=== PATIENT | female | born 1950 | race Caucasian/White ===

== ENCOUNTER 2023-12-28 09:15 | Emergency (ER) | payer MEDICARE, SELFPAY ==
[2023-12-28 09:16] VITALS: BP 154/87; PULSE 86; RESP 18; TEMP 36.4; O2SAT 98; BMI 28.8
--- NOTE | 2023-12-28 09:46 | RAD_ITS ---
HISTORY: pain. TECHNIQUE: XR Pelvis 1 or 2 Views. COMPARISON: None. FINDINGS: OSSEOUS STRUCTURES: No acute displaced fracture identified. Note that overlapping bowel shadows may obscure osseous detail. Mineralization unremarkable. JOINT SPACES: No dislocation. Mild degenerative change. RAD/Pelvis 1 or 2 Views IMPRESSION: No acute displaced fracture or dislocation identified. Electronically Signed: Tia Dean MD at 10:34 EDT ,
--- NOTE | 2023-12-28 09:46 | RAD_ITS ---
HISTORY: pain. TECHNIQUE: XR Spine Lumbar 2 or 3 Views. COMPARISON: None. FINDINGS: VERTEBRAE: Vertebral body heights preserved. Posterior elements appear intact. ALIGNMENT: No significant anterior or posterior subluxation. INTERVERTEBRAL DISCS: Disc spaces maintained. Mild degenerative endplate changes with osteophytes. SOFT TISSUES: Right upper quadrant surgical clips. RAD/Lumbar Spine 2 or 3 Views IMPRESSION: No acute fracture or dislocation identified in the lumbar spine. Mild degenerative change. Electronically Signed: Tia Dean MD at 10:28 EDT ,
--- NOTE | 2023-12-28 10:12 | EDS_ITS ---
HPI History of Present Illness Chief Complaint: Lower Extremity Injury Informant: patient Narrative Narrative: 73-year-old female presenting to the emergency room with low back pain on the right. Patient states that several days ago she was on the commode. She bent over to pull her pants up when she got pain in the right low back. Since that time she notes painful range of motion pain with bending. She denies any radicular symptoms. No bowel or bladder dysfunction. She has a history of diabetes. No prior back injections. No reported fevers. No known malignancies. She states she has had episodes of pain like this in the past but not as severe. She wonders if she has a bone spur. She states that her brother was here in the emergency department so she decided to be evaluated for this. PFSH PFS Home Medications ?Medication ?Instructions ?Recorded ?Last Taken ?Type atorvastatin 40 mg tablet 40 mg PO QHS 10/25/15 10/24/15 History glimepiride 4 mg tablet 2 mg PO BID 10/25/15 10/25/15 History metformin 500 mg tablet,extended 1,000 mg PO BID 10/25/15 10/25/15 History release 24 hr aspirin 81 mg tablet,delayed 81 mg PO DAILY@0800 ##30 10/26/15 Unknown Rx release lisinopril 10 mg tablet 10 mg PO DAILY #30 tabs 10/26/15 Unknown Rx cyclobenzaprine 10 mg tablet 10 mg PO TID PRN Muscle Spasm #15 12/28/23 Unknown Rx TABLETS ibuprofen 600 mg tablet 600 mg PO Q6H PRN PRN pain #20 12/28/23 Unknown Rx TABLETS Allergy/AdvReac Type Severity Reaction Status Date / Time codeine Allergy Other Verified 12/28/23 09:16 amoxicillin (From Augmentin) AdvReac Nausea Verified 12/28/23 09:16 clavulanic acid (From AdvReac Nausea Verified 12/28/23 09:16 Augmentin) doxycycline AdvReac Vomiting Verified 12/28/23 09:16 Social History Smoking Status: Never smoker ROS ROS ED Constitutional Constitutional ED: Denies chills, fever(s) or weight loss Eyes Eyes: Denies change in vision or diplopia ENT ENT ED: Denies ear pain, rhinorrhea or sore throat Cardiovascular Cardiovascular: Denies chest pain, orthopnea, palpitations or racing heartbeat Respiratory/Chest Respiratory/Chest: Denies cough, dyspnea or orthopnea Gastrointestinal Gastrointestinal: Denies abdominal pain, diarrhea, nausea or vomiting Genitourinary Genitourinary ED: Denies dysuria, hematuria or urinary frequency Musculoskeletal Musculoskeletal: Reports back pain; Denies arthralgias, myalgias or neck pain Integumentary Denies abscess or rash Neurologic Neurologic: Denies headache(s), paresthesias or weakness Psychiatric Psychiatric: Denies anxiety, depression, suicidal ideation or suicidal thoughts Endocrine Endocrinology: Denies polydipsia, polyphagia or polyuria Allergic/Immunologic Allergic/Immunologic ED: Denies mouth swelling, tongue swelling or urticaria EXAM Physical Exam Const Vital Signs: 12/28/23 09:16 Temperature 97.6 F L Temperature Source Temporal Pulse Rate 86 Respiratory Rate 18 Blood Pressure 154/87 H Blood Pressure Mean 109 Pulse Ox 98 Oxygen Delivery Method Room Air Positive well nourished and well developed General Appearance ED: well developed and NAD HEENT Reports normocephalic, head/scalp atraumatic and moist mucous membranes Eyes PERRL and EOMs intact bilaterally Neck no lymphadenopathy, supple and no JVD Resp normal respiratory effort and clear to auscultation bilaterally Cardio regular rate, regular rhythm and no murmurs GI normal to inspection, nondistended, normoactive bowel sounds and non-tender Palpation: soft Back/Spine no CVA tenderness Back/Spine Narrative: Patient reports pain lower right back with flexion. She notes tenderness to palpation at the SI joint and over the lower lumbar paraspinal musculature. There are no rashes or tissue texture changes to suggest underlying infection. Extremity normal to inspection General Extremety ED: Negative for edema General Extremity: Negative for edema Neuro oriented x3 and CN's II-XII intact bilaterally Neuro Narrative: Patient has normal patellar and Achilles deep tendon reflexes. She is able to lift the thighs up off the bed while sitting on the side of the bed. I do not appreciate any foot drop or difficulty ambulating. Sensorium / Orientation: alert Motor Exam: strength 5/5 throughout Psych mental status grossly normal Mood & Affect: Negative for depressed or tearful Skin no rashes or lesions noted and no wounds MDM MDM MDM Narrative Medical decision making narrative: Differential diagnosis includes but not limited to muscle spasm myofascial strain disc herniation sciatica degenerative joint disease lumbar radiculopathy My independent interpretation the plain films of the pelvis is no acute fracture. My independent interpretation of the plain films of the lumbar spine is mild degenerative changes no acute fracture. Clinically I think this is more of muscle spasm. This should consist resolve with conservative treatment. Recommend PCP follow-up 1 week if not improved History & Record Review Discussion w/independent historian: Patient Radiography Diagnostic Testing: Clinical Impression(s) from Imaging Studies Lumbar Spine X-Ray 12/28/23 09:46 IMPRESSION: No acute fracture or dislocation identified in the lumbar spine. Mild degenerative change. Electronically Signed: Tia Dean MD at 10:28 EDT , Pelvis X-Ray 12/28/23 09:46 IMPRESSION: No acute displaced fracture or dislocation identified. Electronically Signed: Tia Dean MD at 10:34 EDT , Discharge Plan Triage Chief Complaint: Lower Extremity Injury ED Provider: James Bob Dx/Rx/DC Orders Clinical Impression: Lumbar paraspinal muscle spasm, Low back pain Instructions: ED Back Spasm, No Trauma Prescriptions: New cyclobenzaprine 10 mg tablet 10 mg PO TID PRN (Reason: Muscle Spasm) Qty: 15 0RF ibuprofen 600 mg tablet 600 mg PO Q6H PRN PRN (Reason: pain) Qty: 20 0RF No Action atorvastatin 40 MG tablet 40 mg PO QHS Patient Comments: cholesterol lowering glimepiride 4 MG tablet 2 mg PO BID Patient Comments: diabetes metformin 500 MG tablet 1,000 mg PO BID Patient Comments: diabetes aspirin 81 MG tablet 81 mg PO DAILY@0800 Qty: 30 0RF Patient Comments: heart health lisinopril 10 MG tablet 10 mg PO DAILY Qty: 30 0RF Patient Comments: blood pressure Primary Care Provider: Malvin Mancera Referrals: Malvin Mancera MD [Primary Care Provider] - 1 Week if not improving Print Language: Icelandic Disposition Disposition: Home, Self Care
[2023-12-28 11:16] VITALS: BP 130/68; PULSE 72; RESP 14; TEMP 36.6; O2SAT 99
== END 2023-12-28 11:17 | disposition home or self-care (01) ==
PROVIDERS: Emergency Provider Emergency Medicine; PCP Family Medicine; Visit Provider Emergency Medicine
DX: M62.830 Muscle spasm of back (principal); E11.9 Type 2 diabetes mellitus without complications; M54.50 Low back pain, unspecified; Z79.82 Long term (current) use of aspirin; Z79.84 Long term (current) use of oral hypoglycemic drugs; Z79.899 Other long term (current) drug therapy
CPT/HCPCS: 72100; 72170; 99282